=== PATIENT | male | born 1960 | race Asian ===

== ENCOUNTER → 2016-12-17 | Outpatient (CLI) | payer OTHER ==
[~2016-12-17] MED LIST: ALLO100T30 PO; AMLO10TA2 PO; ATOR40TA78 PO; CARB200T4 PO; DIVA500T4 PO; INSU100I17 SQ; LABE200T3 PO; LEVO75TA5 PO; LOSA100T6 PO; METO-93 PO; METO50TA82 PO; MULT-717 PO; OMEG1CAP12 PO; OXYC-229 PO; POLY17PO5 PO; SULF1TAB24 PO; TERA2CAP3 PO; TERA5CAP3 PO; VALS1TAB12 PO; VALS1TAB15 PO; VITAMIN D2 1.25MG
== END | disposition home or self-care (01) ==
LOC: CFH 07:52
PROVIDERS: ATTEND Internal Medicine Cardiovascular Disease
DX: Z01.810 Encounter for preprocedural cardiovascular examination (principal); I51.7 Cardiomegaly; I08.1 Rheumatic disorders of both mitral and tricuspid valves; I37.1 Nonrheumatic pulmonary valve insufficiency; I10 Essential (primary) hypertension; E11.9 Type 2 diabetes mellitus without complications
CPT/HCPCS: 93306

== ENCOUNTER 2017-01-18 14:53 | Emergency (ER) | payer OTHER ==
[~2017-01-18] VITALS: Ht 170.2 cm; Wt 95.8 kg
[2017-01-18] MEDS ORDERED: SODIUM CHLORIDE 0.9% 1,000 ML IV ONE (15:06)
[2017-01-18] MEDS ORDERED: SODIUM CHLORIDE 0.9% 1,000ML IVBOLUS ONE (15:30)
[2017-01-18 15:38] LABS: BLOOD UREA NITROGEN 55 mg/dL (7-18)
[2017-01-18 17:54] VITALS: BP 139/87
== END 2017-01-18 17:58 | disposition home or self-care (01) ==
LOC: ED 17:52
DX: R19.7 Diarrhea, unspecified (principal); I12.9 Hypertensive chronic kidney disease with stage 1 through stage 4 chronic kidney disease, or unspecified chronic kidney disease; N18.3 Chronic kidney disease, stage 3 (moderate); N17.9 Acute kidney failure, unspecified; E11.9 Type 2 diabetes mellitus without complications
CPT/HCPCS: 36415; 74176; 80048; 81001; 82010; 82040; 82800; 85025; 96360; 96361; 99285; J7030

== ENCOUNTER 2017-09-16 21:44 | Emergency (ER) | payer OTHER ==
[~2017-09-16] VITALS: Ht 170.2 cm; Wt 95.5 kg
[~2017-09-16 21:44] MED LIST changes: -OMEG1CAP12 PO; +OMEG1CAP23 PO; -OXYC-229 PO; +OXYC-307 PO
[2017-09-16] MEDS ORDERED: DIAZEPAM 5 MG TABLET PO ONE (23:00)
[2017-09-16] MEDS ORDERED: HYDROmorphone 2 MG/ML, 1ML IM ONE (23:00)
[2017-09-16] MEDS ORDERED: HYDROmorphone 2 MG/ML, 1ML ONE (23:02)
[2017-09-16] MEDS ORDERED: DIAZEPAM 5 MG TABLET ONE (23:02)
[2017-09-16 23:43] LABS: BASOPHILS # (AUTO) 0.02 x10^3/uL (0-0.1); BASOPHILS % (AUTO) 0 % (0-1); EOSINOPHILS # (AUTO) 0.09 x10^3/uL (0-0.4); EOSINOPHILS % (AUTO) 1 % (1-7); LYMPHOCYTES # (AUTO) 1.58 x10^3/uL (1-3.4); LYMPHOCYTES % (AUTO) 22 % (22-44); MD NO; MEAN CORPUSCULAR HEMOGLOBIN 30.4 pg (27.5-34.5); MEAN CORPUSCULAR HGB CONC 33.9 g/dL (33.2-36.2); MEAN CORPUSCULAR VOLUME 89.6 fL (81-97); MEAN PLATELET VOLUME 6.5 fL (7.4-10.4); MONOCYTES # (AUTO) 0.93 x10^3/uL (0.2-0.8); MONOCYTES % (AUTO) 13 % (2-9); NEUTROPHILS % (AUTO) 64 % (42-75); PLATELET COUNT 205 x10^3/uL (130-400); RED BLOOD COUNT 5.03 x10^6/uL (4.38-5.82); RED CELL DISTRIBUTION WIDTH 15.9 % (9.4-14.8)
[2017-09-16] MEDS ORDERED: HYDR-3341 PO (23:52)
[2017-09-17] LABS: ANION GAP 8 mmol/L (5-15); CALCIUM 7.9 mg/dL (8.5-10.1); CHLORIDE 106 mmol/L (98-107)
[2017-09-17 00:01] LABS: CREATININE 2.81 mg/dL (0.7-1.3)
[2017-09-17 01:27] VITALS: BP 156/98
== END 2017-09-17 01:32 | disposition home or self-care (01) ==
LOC: ED 23:38
DX: S39.012A Strain of muscle, fascia and tendon of lower back, initial encounter (principal); E78.00 Pure hypercholesterolemia, unspecified; I10 Essential (primary) hypertension; G40.909 Epilepsy, unspecified, not intractable, without status epilepticus; Z90.49 Acquired absence of other specified parts of digestive tract; Z88.0 Allergy status to penicillin; X58.XXXA Exposure to other specified factors, initial encounter; Y93.89 Activity, other specified; Y92.89 Other specified places as the place of occurrence of the external cause; Y99.8 Other external cause status
CPT/HCPCS: 36415; 72110; 80048; 82040; 85025; 96372; 99285; J1170

== ENCOUNTER 2018-09-02 02:47 | Emergency (ER) | payer OTHER ==
[~2018-09-02] VITALS: Ht 170.2 cm; Wt 90.0 kg
[~2018-09-02 02:47] MED LIST changes: -AMLO10TA2 PO; +AMLO10TA6 PO; +HYDR-3341 PO; -LABE200T3 PO; +LABE200T6 PO; -LOSA100T6 PO; +LOSA100T7 PO
--- NOTE | 2018-09-02 03:10 | NUR ---
PT PRESENTED WITH C/O N/V/D AND ABD CRAMPING THAT STARTED AT 1999 YESTERDAY. PT STATED HE ATE [facility] AT NOON. PROVIDED PT WITH GOWN, MONITORS APPLIED, SIDERAILS UP X2, CALL LIGHT WITHIN REACH. PA AT BEDSIDE FOR EVAL.
[2018-09-02] MEDS ORDERED: ATOR40TA78 PO (03:18)
[2018-09-02] MEDS ORDERED: ALLO100T30 PO (03:18)
[2018-09-02] MEDS ORDERED: FURO20TA3 PO (03:18)
[2018-09-02] MEDS ORDERED: METO50TA82 PO (03:18)
[2018-09-02] MEDS ORDERED: ONDANSETRON 2MG/ML, 2ML ONE (03:29)
[2018-09-02] MEDS ORDERED: SODIUM CHLORIDE FLUSH 10ML SYR IVF ONE (03:30)
[2018-09-02] MEDS ORDERED: ONDANSETRON 2MG/ML, 2ML IVPush ONE (03:30)
--- NOTE | 2018-09-02 03:33 | NUR ---
IV SITE STARTED, PT MEDICATED PER NOV. LAUNCHMAN AT BEDSIDE FOR LAB DRAW. ELECTRONIC ENGINEERING DRAFTSPERSON AT BEDSIDE. CALL LIGHT WITHIN REACH.
[2018-09-02 03:44] LABS: BASOPHILS # (AUTO) 0.01 x10^3/uL (0-0.1); BASOPHILS % (AUTO) 0 % (0-1); EOSINOPHILS # (AUTO) 0.08 x10^3/uL (0-0.4); EOSINOPHILS % (AUTO) 1 % (1-7); LYMPHOCYTES # (AUTO) 1.78 x10^3/uL (1-3.4); LYMPHOCYTES % (AUTO) 13 % (22-44); MD NO; MEAN CORPUSCULAR HEMOGLOBIN 31.6 pg (27.5-34.5); MEAN CORPUSCULAR VOLUME 92.9 fL (81-97); MEAN PLATELET VOLUME 6.7 fL (7.4-10.4); MONOCYTES # (AUTO) 0.89 x10^3/uL (0.2-0.8); MONOCYTES % (AUTO) 6 % (2-9); NEUTROPHILS # (AUTO) 11.32 x10^3/uL (1.8-6.8); NEUTROPHILS % (AUTO) 80 % (42-75); PLATELET COUNT 192 x10^3/uL (130-400); RED BLOOD COUNT 4.88 x10^6/uL (4.38-5.82); RED CELL DISTRIBUTION WIDTH 15.5 % (9.4-14.8)
[2018-09-02 03:52] LABS: ANION GAP 8 mmol/L (5-15); CALCIUM 7.7 mg/dL (8.5-10.1); CHLORIDE 109 mmol/L (98-107); CREATININE 3.29 mg/dL (0.7-1.3)
[2018-09-02 03:53] LABS: ALBUMIN 2.6 g/dL (3.4-5.0)
[2018-09-02 03:56] LABS: ALANINE AMINOTRANSFERASE 42 U/L (12-78); ALKALINE PHOSPHATASE 67 U/L (45-117); BILIRUBIN,TOTAL 0.3 mg/dL (0.2-1.0); TOTAL PROTEIN 6.8 g/dL (6.4-8.2)
[2018-09-02] MEDS ORDERED: PROMETHAZINE 25 MG/ML, 1ML IM STA (04:51)
[2018-09-02] MEDS ORDERED: DIAZEPAM 5 MG TABLET PO ONE (05:00)
[2018-09-02] MEDS ORDERED: PROMETHAZINE 25 MG/ML, 1ML ONE (05:07)
[2018-09-02] MEDS ORDERED: DIAZEPAM 5 MG TABLET ONE (05:08)
--- NOTE | 2018-09-02 05:14 | NUR ---
PT RESTING ON [place], MEDICATED PER NOV, PROVIDED PT WITH WATER FOR PO CHALLENGE, CALL LIGHT WITHIN REACH.
[2018-09-02 05:59] VITALS: BP 140/83
--- NOTE | 2018-09-02 05:59 | NUR ---
Assist RN: patient discharged with prescriptions and instruction. verbalized understanding. wheeled to lobby.
== END 2018-09-02 06:02 | disposition home or self-care (01) ==
LOC: ED 04:04
DX: K52.89 Other specified noninfective gastroenteritis and colitis (principal); E78.00 Pure hypercholesterolemia, unspecified; G40.909 Epilepsy, unspecified, not intractable, without status epilepticus; I10 Essential (primary) hypertension; E11.9 Type 2 diabetes mellitus without complications
CPT/HCPCS: 36415; 76700; 80053; 83690; 85025; 96372; 96374; 99284; J2405; J2550